=== PATIENT | female | born 1945 | race Caucasian/White ===

== ENCOUNTER 2016-08-20 08:46 | Outpatient (CLI) | payer MEDICARE, OTHER ==
[~2016-08-20] VITALS: Ht 185.4 cm; Wt 160.8 kg
[2016-08-20 08:55] VITALS: BP 156/90
[2016-08-20 09:53] LABS: BASOPHILS # (AUTO) 0.1 10^3/uL (0.0-0.1); BASOPHILS % (AUTO) 1 % (0-10); EOSINOPHILS # (AUTO) 0.1 10^3/uL (0.0-0.3); EOSINOPHILS % (AUTO) 1 % (0-10); LYMPHOCYTES # (AUTO) 0.9 X 10^3 (1.0-4.0); LYMPHOCYTES % (AUTO) 9 % (12-44); MEAN CORPUSCULAR HEMOGLOBIN 29 PG (25-34); MEAN CORPUSCULAR HGB CONC 33 G/DL (32-36); MEAN CORPUSCULAR VOLUME 88 FL (80-99); MEAN PLATELET VOLUME 11.7 FL (7.4-10.4); MONOCYTES # (AUTO) 0.6 X 10^3 (0.0-1.0); MONOCYTES % (AUTO) 6 % (0-12); NEUTROPHILS % (AUTO) 84 % (42-75); PLATELET COUNT 209 10^3/uL (130-400); RED BLOOD COUNT 5.21 10^6/uL (4.35-5.85); RED CELL DISTRIBUTION WIDTH 14.6 % (10.0-14.5); WHITE BLOOD COUNT 9.5 10^3/uL (4.3-11.0)
[2016-08-20] MEDS ORDERED: ATOR20TA66 PO (09:57)
[2016-08-20] MEDS ORDERED: DIGO250T PO (09:57)
[2016-08-20] MEDS ORDERED: WARF10TA PO (09:57)
[2016-08-20] MEDS ORDERED: CARV12.53 PO (09:57)
[2016-08-20] MEDS ORDERED: INSU100I10 SQ (09:57)
[2016-08-20] MEDS ORDERED: LISI1TAB8 PO (09:57)
[2016-08-20 10:14] LABS: CREATININE SERUM 1.08 MG/DL (0.60-1.30); POTASSIUM 3.7 MMOL/L (3.6-5.0)
[2016-08-20 10:22] LABS: DIGOXIN 1.08 NG/ML (0.80-2.00)
== END 2016-08-20 09:40 | disposition home or self-care (01) ==
LOC: EDSEX → PREOP 08:46
PROVIDERS: ATTEND Surgery Pediatric Surgery
DX: Z01.812 Encounter for preprocedural laboratory examination (principal); Z01.818 Encounter for other preprocedural examination; E66.01 Morbid (severe) obesity due to excess calories; Z11.2 Encounter for screening for other bacterial diseases; Z79.899 Other long term (current) drug therapy
CPT/HCPCS: 36415; 80048; 80162; 85025; 87081; 93005

== ENCOUNTER 2016-08-26 08:47 | Inpatient (IN) | payer MEDICARE, OTHER ==
[~2016-08-26] VITALS: Ht 185.4 cm; Wt 160.8 kg
[~2016-08-26 08:47] MED LIST: ATOR20TA66 PO; CARV12.53 PO; DIGO250T PO; INSU100I10 SQ; LISI1TAB8 PO; WARF10TA PO
--- OUTSIDE RECORDS SUMMARY | 2016-08-26 08:54 | XMS REPORT | Continuity of Care Document ---
Author Author [facility] Organization [facility] Address Unknown Phone Unavailable Care Team Providers Care Field Secretary Name Role Phone NO, LOCAL PHYSICIAN PCP Unavailable Insurance Providers Payer Name Policy Number Subscriber Name Relationship [employer] [id number] Erica Delgado Self / Same As Patient [employer] [id number] Erica Delgado Self / Same As Patient Advance Directives Directive Response Recorded Date/Time Advance Directives Yes 08/20/16 8:55am Health Care Power of Lumber Trimmer Y Chris 08/20/16 8:55am Organ Donor No 08/20/16 8:55am Resuscitation Status Full Code 08/20/16 8:55am Problems No problem information available. Medications Current Home Medications Medication Dose Units Route Directions Days/Qty Instructions Start Date Digoxin 250 Mcg 250 Mcg Oral Daily 08/20/16 Warfarin Sodium 10 Mg 5-10 Mg Oral Daily@1800 take 1/2 of 10mg pill on Tuesday take 1 (10mg) tab all the other days 08/20/16 Lisinopril/Hydrochlorothiazide 1 Each 1 Each Oral Twice A Day Carvedilol 12.5 Mg 12.5 Mg Oral Twice A Day 08/20/16 Atorvastatin Calcium 20 Mg 20 Mg Oral Bedtime 08/20/16 Insulin Glargine,Hum.rec.anlog 100 Unit/1 Ml 40 Unit Sub-Q Twice A Day 08/20/16 Social History Social History Problem Response Recorded Date/Time Alcohol Use Denies Use 08/20/2016 8:56am Recreational Drug Use No 08/20/2016 8:56am Recent Foreign Travel No 08/20/2016 8:51am Recent Infectious Disease Exposure No 08/20/2016 8:51am Smoking Status Former Smoker 08/20/2016 8:55am Recent Hopitalizations No 08/20/2016 8:56am Query Response Start Date Stop Date Smoking Status Former Smoker Hospital Discharge Instructions No hospital discharge instructions. Plan of Care Discharge Date 08/20/16 9:40am Prescriptions See Medication Section Functional Status No functional status results. Allergies, Adverse Reactions, Alerts Allergen Type Severity Reaction Status Last Updated Morphine Allergy Unknown makes me flushed feeling Active 08/20/16 Codeine Allergy Unknown sick, turns me red Active 08/20/16 Immunizations No immunization records. Vital Signs Acute Vital Signs Vital Response Date/Time Pulse Rate (adult) 77 bpm (60 - 90) 08/20/2016 8:55am O2 Sat by Pulse Oximetry 95 % (88 - 100) 08/20/2016 8:55am Blood Pressure 156/90 mm Hg 08/20/2016 8:55am Blood Pressure Mean 112 mm Hg 08/20/2016 8:55am Pain Numeric Pain Scale 2 08/20/2016 8:55am Height (Feet) 6 feet 08/20/2016 8:51am Height (Inches) 1.00 inches 08/20/2016 8:51am Height (Calculated Centimeters) 185.141048 cm 08/20/2016 8:51am Weight (Pounds) 354 pounds 08/20/2016 8:51am Weight (Ounces) 9.0 oz 08/20/2016 8:51am Weight (Calculated Grams) 673796.85 gm 08/20/2016 8:51am Weight (Calculated Kilograms) 160.339879 kilograms 08/20/2016 8:51am Calculated BMI 46.8 08/20/2016 8:51am Results Laboratory Results Test Name Result Units Flags Reference Collection Date/Time Result Date/ Time Comments White Blood Count 9.5 10^3/uL 4.3-11.0 08/20/2016 9:30am 08/20/2016 9: 53am Red Blood Count 5.21 10^6/uL 4.35-5.85 08/20/2016 9:30am 08/20/2016 9: 53am Hemoglobin 15.3 G/DL 11.5-16.0 08/20/2016 9:3008/20/2016 9:53am Hematocrit 46 % 35-52 08/20/2016 9:08/20/2016 9:53am Mean Corpuscular Volume 88 FL 80-99 08/20/2016 9:08/20/2016 9: 53am Mean Corpuscular Hemoglobin 29 PG 25-34 08/20/2016 9:08/20/2016 9: 53am Mean Corpuscular Hemoglobin Concent 33 G/DL 32-36 08/20/2016 9: 9:53am Red Cell Distribution Width 14.6 % H 10.0-14.5 08/20/2016 9:2016 9:53am Platelet Count 209 10^3/uL 130-400 08/20/2016 9:08/20/2016 9:53am Mean Platelet Volume 11.7 FL H 7.4-10.4 08/20/2016 9:3008/20/2016 9: 53am Neutrophils (%) (Auto) 84 % H 42-75 08/20/2016 9:08/20/2016 9:53am Lymphocytes (%) (Auto) 9 % L 12-44 08/20/2016 9:08/20/2016 9:53am Monocytes (%) (Auto) 6 % 0-12 08/20/2016 9:08/20/2016 9:53am Eosinophils (%) (Auto) 1 % 0-10 08/20/2016 9:08/20/2016 9:53am Basophils (%) (Auto) 1 % 0-10 08/20/2016 9:08/20/2016 9:53am Neutrophils # (Auto) 8.0 X 10^3 H 1.8-7.8 08/20/2016 9:08/20/2016 9: 53am Lymphocytes # (Auto) 0.9 X 10^3 L 1.0-4.0 08/20/2016 9:08/20/2016 9: 53am Monocytes # (Auto) 0.6 X 10^3 0.0-1.0 08/20/2016 9:3008/20/2016 9: 53am Eosinophils # (Auto) 0.1 10^3/uL 0.0-0.3 08/20/2016 9:30am 08/20/2016 9 :53am Basophils # (Auto) 0.1 10^3/uL 0.0-0.1 08/20/2016 9:30am 08/20/2016 9: 53am Procedures Procedure Status Date Provider(s) Tracing only of electrocardiogram Active 08/20/16 KATELIN ADAME DO Encounters Encounter Location Arrival/Admit Date Discharge/Depart Date Attending Provider Departed Clinic [facility] 08/20/16 8:46am 08/20/16 9: 40am ANAMIKA MASTERS MD
[2016-08-26 09:00] VITALS: BP 142/95
[2016-08-26] MEDS ORDERED: ceFAZolin 1 GM/NS 50 ML IVPB IV ONE ×2 (09:15)
[2016-08-26] MEDS ORDERED: FAMOTIDINE 20MG/2ML IV (PEPCID) IV ONE (09:45)
[2016-08-26] MEDS: LACTATED RINGERS 1,000 ML IV PRN ×3 (09:50→14:31)
--- NOTE | 2016-08-26 10:40 | Progress Note-Pre Operative ---
Pre-Operative Progress Note H&P Reviewed The H&P was reviewed, patient examined and no changes noted. Date H&P Reviewed: Aug 26, 2016 Time H&P Reviewed: 10:30 Pre-Operative Diagnosis: morbid obesity, diabetes, sleep apnea ANAMIKA MASTERS MD Aug 26, 2016 10:40 am
[2016-08-26] MEDS ORDERED: proPOfol 200 MG/20 ML (DIPRIVAN) VIAL IV ONE (10:54)
[2016-08-26] MEDS ORDERED: ROCURONIUM 50 MG/5 ML (ZEMURON) VIAL IV ONE (10:54)
[2016-08-26] MEDS ORDERED: SUCCINYLCHOLINE INJ 100 MG/5 ML SYR ONE (10:54)
[2016-08-26] MEDS ORDERED: LACTATED RINGERS 1,000 ML IV ONE ×3 (10:54→14:24)
[2016-08-26] MEDS ORDERED: SEVOFLURANE (ULTANE) 15 ML INHAL SOLN ONE ×7 (10:54→13:25)
[2016-08-26] MEDS ORDERED: LIDOCAINE PF 2% 10 ML (XYLOCAINE) AMP ONE (10:54)
[2016-08-26] MEDS ORDERED: fentaNYL INJECTION 100 MCG/2 ML AMP ONE ×3 (10:55→14:24)
[2016-08-26] MEDS ORDERED: MIDAZOLAM 2 MG/2 ML (VERSED) VIAL ONE (10:55)
[2016-08-26] MEDS ORDERED: BUP/EPI 0.5% 1:200,000 (SENSORCAINE) 30 ML VIAL ONE (10:57)
[2016-08-26] MEDS ORDERED: PROMETHAZINE INJ 25 MG/ML (PHENERGAN) AMP IV PRN (11:00)
[2016-08-26] MEDS ORDERED: ONDANSETRON 4 MG/2 ML (SDV) Z0FRAN IV PRN (11:00)
[2016-08-26] MEDS ORDERED: MEPERIDINE (DEMEROL) INJ 50 MG/ML IV PRN (11:00)
[2016-08-26] MEDS ORDERED: fentaNYL INJECTION 250 MCG/5 ML AMP IV PRN (11:00)
[2016-08-26] MEDS ORDERED: GLYCOPYRROLATE 0.2 MG/ML (ROBINUL) 2 ML VIAL ONE ×2 (12:12→13:18)
[2016-08-26] MEDS ORDERED: NITROGLYCERIN IV ONE (12:49)
[2016-08-26] MEDS ORDERED: hydrALAZINE (APESOLINE) 20 MG/ML VIAL ONE (12:49)
[2016-08-26] MEDS ORDERED: NEOSTIGMINE (BLOXIVERZ ) 1 MG/1ML 10 ML VIAL ONE (13:18)
[2016-08-26] MEDS ORDERED: BUP/EPI 0.5% 1:200,000 (SENSORCAINE) 30 ML VIAL INJ ONE (13:30)
[2016-08-26] MEDS ORDERED: diphenhydrAMINE 50 MG/ML INJ (BENADRYL) IVP PRN (13:45)
[2016-08-26] MEDS ORDERED: fentaNYL INJECTION 5,000 MCG in NS (IVPB) 0 ML IV SCH (13:45)
[2016-08-26] MEDS ORDERED: metroNIDAZOLE 500MG/100ML IVPB 100 ML IV SCH (13:45)
[2016-08-26] MEDS ORDERED: oxyCODONE 20 MG/1 ML ORAL CONC (RoxiCODONE) CHARGE PER 1 ML PO PRN (13:45)
[2016-08-26] MEDS ORDERED: RT-ALBUTEROL SULF 2.5 MG/3 ML PRE-MIX VIAL INH SCH (13:45)
--- NOTE | 2016-08-26 13:45 | Progress Note-Post Operative ---
Post-Operative Progess Note Hand Cooper Helper yissel bower BOTANY PROFESSOR Pre-Operative Diagnosis morbid obesity, diabetes, sleep apnea Post-Operative Diagnosis same Post-Op Procedure Note Date of Procedure: Aug 26, 2016 Name of Procedure: laparoscopic gastric sleeve resection Anesthesia Type GET Estimated blood loss (mL): minimal Specimen(s) collected stomach ANAMIKA MASTERS MD Aug 26, 2016 1:44 pm
[2016-08-26] MEDS ORDERED: ceFAZolin INJECTION 2,000 MG in NS (IVPB) 50 ML IV SCH (14:00)
[2016-08-26] MEDS ORDERED: PROMETHAZINE INJ 25 MG/ML (PHENERGAN) AMP ONE (14:03)
[2016-08-26] MEDS: PROMETHAZINE INJ 25 MG/ML (PHENERGAN) AMP IVP PRN ×2 (14:17→14:32)
[2016-08-26] MEDS: 1/2 NS W/KCL 20 MEQ/L 1,000 ML IV SCH ×3 (15:36→21:13)
[2016-08-26 17:00] VITALS: BP 186/84
[2016-08-26] MEDS: meTOprolol 5 MG/5 ML (LOPRESSOR) VIAL IVP SCH ×3 (17:13→23:31)
[2016-08-26] MEDS: metroNIDAZOLE 500MG/100ML IVPB 100 ML IV SCH ×2 (17:13→23:30)
[2016-08-26 17:53] VITALS: BP 186/84
[2016-08-26] MEDS ORDERED: fentaNYL PCA 300 MCG/30 ML VIAL IV PRN (18:15)
[2016-08-26] MEDS ORDERED: FLU TRIvalent (5 YOA+) 2016-17 (AFLURIA) 0.5 ML IM ONE (18:30)
[2016-08-26] MEDS: RT-ALBUTEROL SULF 2.5 MG/3 ML PRE-MIX VIAL INH SCH ×2 (18:31→22:18)
[2016-08-26] MEDS: ONDANSETRON 4 MG/2 ML (SDV) Z0FRAN IVP SCH ×2 (18:56→23:30)
[2016-08-26 19:54] VITALS: BP 227/113
[2016-08-26] MEDS: ceFAZolin INJECTION 2,000 MG in NS (IVPB) 50 ML IV SCH (19:56)
[2016-08-26] MEDS: ENOXAPARIN 40 MG/0.4 ML (LOVENOX) SYR SC SCH (21:08)
[2016-08-26] MEDS: PANTOPRAZOLE 40 MG/10 ML (PROTONIX) VIAL IV SCH (21:08)
[2016-08-26 21:14] VITALS: BP 184/88
[2016-08-26] MEDS ORDERED: METOCLOPRAMIDE INJ 10 MG/2 ML (REGLAN) ONE (22:35)
[2016-08-26] MEDS: METOCLOPRAMIDE INJ 10 MG/2 ML (REGLAN) IVP PRN (22:44)
[2016-08-27] VITALS: BP 170/88
[2016-08-27] MEDS: RT-ALBUTEROL SULF 2.5 MG/3 ML PRE-MIX VIAL INH SCH ×4 (02:43→14:00)
[2016-08-27] MEDS: 1/2 NS W/KCL 20 MEQ/L 1,000 ML IV SCH ×3 (03:37→11:55)
[2016-08-27] MEDS: meTOprolol 5 MG/5 ML (LOPRESSOR) VIAL IVP SCH ×3 (03:37→14:01)
[2016-08-27] MEDS: ceFAZolin INJECTION 2,000 MG in NS (IVPB) 50 ML IV SCH ×2 (03:57→14:01)
[2016-08-27 04:00] VITALS: BP 162/84
[2016-08-27 04:41] LABS: MEAN PLATELET VOLUME 10.7 FL (7.4-10.4); RED BLOOD COUNT 5.29 10^6/uL (4.35-5.85); RED CELL DISTRIBUTION WIDTH 14.4 % (10.0-14.5); WHITE BLOOD COUNT 13.8 10^3/uL (4.3-11.0)
[2016-08-27 05:00] LABS: ANION GAP 15 MMOL/L (5-14); BLOOD UREA NITROGEN 17 MG/DL (7-18); BUN/CREATININE RATIO 16; CALCIUM 8.8 MG/DL (8.5-10.1); CARBON DIOXIDE 20 MMOL/L (21-32); CHLORIDE 100 MMOL/L (98-107); CREATININE SERUM 1.08 MG/DL (0.60-1.30); GFR ESTIMATED > 60; GLUCOSE 176 MG/DL (70-105); POTASSIUM 3.8 MMOL/L (3.6-5.0); SODIUM 135 MMOL/L (135-145)
[2016-08-27] MEDS: ONDANSETRON 4 MG/2 ML (SDV) Z0FRAN IVP SCH ×2 (05:49→14:01)
[2016-08-27 06:07] LABS: OCCULT BLOOD NEGATIVE QC NEGATIVE (NEGATIVE); OCCULT BLOOD POSITIVE QC POSITIVE (POSITIVE); OCCULT BLOOD,GASTRIC FLUID POSITIVE (NEGATIVE)
[2016-08-27 08:00] VITALS: BP 180/84
[2016-08-27] MEDS ORDERED: METOCLOPRAMIDE INJ 10 MG/2 ML (REGLAN) ONE (08:34)
[2016-08-27] MEDS: PANTOPRAZOLE 40 MG/10 ML (PROTONIX) VIAL IV SCH (08:48)
[2016-08-27] MEDS: metroNIDAZOLE 500MG/100ML IVPB 100 ML IV SCH (08:49)
[2016-08-27] MEDS: ENOXAPARIN 40 MG/0.4 ML (LOVENOX) SYR SC SCH (08:50)
[2016-08-27] MEDS: METOCLOPRAMIDE INJ 10 MG/2 ML (REGLAN) IVP PRN (08:52)
[2016-08-27] MEDS ORDERED: ONDANSETRON 4 MG/2 ML (SDV) Z0FRAN IVP PRN ×2 (09:34→13:45)
--- NOTE | 2016-08-27 09:42 | Progress Note (SOAP) ---
Subjective Subjective/Events-last exam doing ok, pain controlled. having some nausea and one episode small amount emesis. ambulating well. Objective Exam Vital Signs Date Time Temp Pulse Resp B/P Pulse Ox O2 Delivery O2 Flow Rate FiO2 08/27/16 06:20 92 08/27/16 06:00 18 08/27/16 04:00 98.2 79 18 162/84 93 Room Air 08/27/16 02:44 98 4.00 08/27/16 01:31 70 08/27/16 00:00 98.4 80 18 170/88 98 Room Air 08/26/16 22:18 97 4.00 08/26/16 21:53 84 08/26/16 21:14 73 184/88 08/26/16 19:54 96.0 75 18 227/113 97 Room Air 08/26/16 18:32 98 4.00 08/26/16 17:53 96.5 60 16 186/84 99 Room Air 08/26/16 17:00 96.5 60 16 186/84 99 Room Air 08/26/16 12:00 98.0 I & O 08/27/16 07:00 Intake Total 3260 ml Output Total 4230 ml Balance -970 ml Capillary Refill : General Appearance: No Apparent Distress HEENT: PERRL/EOMI Neck: Full Range of Motion Respiratory: Chest Non Tender Lungs Clear Cardiovascular: Regular Rate, Rhythm Gastrointestinal: soft other (incision clean/dry) Extremity: Normal Capillary Refill Neurologic/Psychiatric: Alert Oriented x3 Skin: Normal Color Lymphatic: No Adenopathy Results Lab Laboratory Tests 08/26/16 14:11: Glucometer 109 08/26/16 16:06: Glucometer 142H 08/26/16 20:10: Glucometer 152H 08/27/16 00:33: Glucometer 190H 08/27/16 04:25: Anion Gap 15H, BUN/Creatinine Ratio 16, Blood Urea Nitrogen 17, Calcium Level 8.8, Carbon Dioxide Level 20L, Chloride Level 100, Creatinine 1.08, Estimat Glomerular Filtration Rate > 60, Glucose Level 176H, Hematocrit 46, Hemoglobin 15.6, Mean Corpuscular Hemoglobin 30, Mean Corpuscular Hemoglobin Concent 34, Mean Corpuscular Volume 88, Mean Platelet Volume 10.7H, Platelet Count 229, Potassium Level 3.8, Red Blood Count 5.29, Red Cell Distribution Width 14.4, Sodium Level 135, White Blood Count 13.8H 08/27/16 04:32: Glucometer 161H 08/27/16 05:50: Gastric Fluid Occult Blood POSITIVE 08/27/16 09:02: Glucometer 157H Assessment/Plan Assessment/Plan Assess & Plan/Chief Complaint s/p laparoscopic gastric sleeve resection. ambulate. start phase 1 clear liquid diet. home when criteria met. Diagnosis/Problems: Clinical Quality Measures DVT/VTE Risk/Contraindication: Risk Factor Score Per Nursin RFS Level Per Nursing on Admit: 4+=Very High ANAMIKA MASTERS MD Aug 27, 2016 09:42
[2016-08-27] MEDS ORDERED: PROMETHAZINE INJ 25 MG/ML (PHENERGAN) AMP IVP PRN (09:45)
[2016-08-27] MEDS ORDERED: PANT40TA3 PO (09:48)
[2016-08-27] MEDS ORDERED: ONDN4T PO (09:48)
[2016-08-27] MEDS ORDERED: OXYC-473 PO (09:48)
--- NOTE | 2016-08-27 09:52 | Discharge Inst-Surgical ---
D/C Lap Instructions-SONAM Follow Up Appt in 2 weeks Activity as tolerated No driving for 24 hours No driving while on pain medications Incentive Spirometry use every 2 hours while awake Phase one clear liquid diet 2 weeks. Symptoms to Report: Fever over 101 degree F, Nausea/Vomiting Infection Signs and Symptoms to report: Increased redness, Foul odor of wound, Increased drainage Bathing instructions: May shower Operative Area Clean/Dry; Keep incision clean/dry If any problems/questions: Contact your physician or go to Emergency Room ANAMIKA MASTERS MD Aug 27, 2016 09:51
--- NOTE | 2016-08-27 11:10 | OPERATIVE REPORT ---
PROCEDURE PHYSICIAN: ANAMIKA TORRES DATE OF PROCEDURE: ATTENDING PRIMARY CARE PHYSICIAN: Dr. Guido PREOPERATIVE DIAGNOSIS: 1. Morbid obesity. 2. Hypertension. 3. Diabetes. 4. Sleep apnea. POSTOPERATIVE DIAGNOSIS: 1. Morbid obesity. 2. Hypertension. 3. Diabetes. 4. Sleep apnea. PROCEDURE: Laparoscopic gastric sleeve resection. SURGEON: Dr. Torres. RAW PRODUCTS DIRECTOR: Raleigh Garcia APRN. ANESTHESIA: General endotracheal. ESTIMATED BLOOD LOSS: Minimal. FINDINGS: 1. Moderate hepatomegaly. 2. Gallbladder appeared normal. DISPOSITION: The patient tolerated the procedure well. BRIEF HISTORY: Mr. Saúl Leyva is a 71-year-old male with morbid obesity and in our surgical weight loss program for the gastric sleeve resection and meets the medical criteria for bariatric surgery. This gentleman reports that his lowest weight was in his early 20s, when he was approximately 180 pounds. He is 89 and states that he stayed around 240 to 250 pounds for many years. Approximately 14 years ago at around age 57 he developed a significant amount of fatigue. He was seen by several physicians and found to have atrial fibrillation. With atrial fibrillation he developed lower extremity edema and immobility. He states that since this diagnosis he has developed other medical problems including fatigue, strength loss and sedentary lifestyle which allowed for a significant amount weight again. He has tried diets including low carbohydrate low-fat diets with no success. He has tried exercise regimens including weight training at the gym, treadmill, walking with no success. He has not tried any medications in the past. His medical comorbidities related to his obesity include atrial fibrillation, hypertension, degenerative joint disease, hypercholesterolemia and obstructive sleep apnea. PROCEDURE: The patient was brought to the operating room and laid supine on the table. After adequate IV pain and sedative medications and general endotracheal intubation the abdomen was prepped and draped in standard surgical fashion. 0.5% Marcaine with epinephrine was then used to anesthetize the overlying skin in the left upper abdominal quadrant. A small transverse skin incision made using a 15 blade. An 0 silk suture was applied to the medial aspect of the incision for retraction. A Veress needle inserted with low opening pressures 0 mmHg and the abdomen was insufflated to 15 mmHg pressure. The Veress needle removed and a 5 mm Xcel trocar placed followed by a 5 mm, 45 degrees angle laparoscope, visualizing the peritoneal cavity. A four-quadrant abdominal exploration was performed. There was a mild to moderate hepatomegaly. The gallbladder appeared normal. Under direct visualization we then proceeded to place a mid abdominal, left of midline, 10 mm port after the skin and peritoneum were anesthetized using 0.5% Marcaine with epinephrine and a transverse incision made using a 15 blade. In a similar manner, a mid abdominal, right of midline 15 mm port was placed, followed by right upper abdominal quadrant 5 mm port. An area in the epigastric region was then anesthetized and a small transverse skin incision made using an 11 blade. A tract was then created through the abdominal layers using the trocar to a 5 mm port and a medium size Joy liver retractor was placed through this opening and the left lobe of the liver retracted anteriorly and superiorly. The patient was then placed in steep reverse Trendelenburg position. We then proceeded to approximately measure 6 cm from the pylorus and this was marked with a marking pen. The hepatocolic ligament next to the stomach was then opened using a Sonicision and the lesser sac opened. We then proceeded with inferior dissection until we were approximately 2 cm below our miles using the Sonicision. We then proceeded cephalad along the greater curvature taking down the short gastric vessels using the Sonicision. We then proceeded with dissection of the angle of His, as well as the posterior stomach behind it with visualization of good hemostasis. The GastriSail was then inserted by anesthesia, under direct visualization. This was lighted and acted as are bougie for our staple line. A KALA 45 mm black polyglycolic acid black load was then used to staple and transect the stomach approximately 2 cm below our marking. We then proceeded with two 60 mm black loads again following the bougie as our guide. We then follow with two 60 mm purple load staplers completing our gastric sleeve resection. Good hemostasis was observed. The staple line corners were then clipped with 5 mm clips. The pylorus was then occluded and saline infused. Approximately 60 milliliters of air were then infused with no leak identified. The saline was then suctioned out. Tisseel fibrin glue was then placed on the staple line. The omentum placed over the staple line. The liver retractor was then removed. The stomach was removed through the 15 mm port site. The 15 and 10 mm port site, fascia and peritoneum were then closed under direct visualization using a Terrnece-Ar device and 0 Vicryl suture. The abdomen was desufflated and the remaining ports removed. All skin incisions were closed using 4-0 Monocryl running subcuticular sutures. The wounds were then cleaned and covered Dermabond. The patient tolerated the procedure well. We will admit to the general surgical floor. We will start IV and oral pain medication, including a Fentanyl SUPERVISOR BOILER REPAIR as well as a DVT prophylaxis with calf SCDs, early ambulation with, as well as Lovenox injections. We will start a phase I clear liquid diet tomorrow, as well as oral pain medication. Once he is tolerating 60 milliliters of clear liquids every half-hour is ambulating well, and has adequate pain control with oral pain medication, we will discharge him home. Job ID: [id number] Dictated Date: 08/26/2016 14:05:37 Editor Managing Director Date: 08/27/2016 10:51:07 / richardson
--- NOTE | 2016-08-27 11:36 | Consultation-Hospitalist ---
HPI History of Present Illness: HPI/Chief Complaint CC: Medical management after gastric sleeve HPI: This is a 71-year-old white male that has undergone an uncomplicated gastric sleeve by Dr. Torres and I have been asked to manage the patient's medical problems while hospitalized. He does have a history of atrial fibrillation and he sees Dr. Ring cardiology in [place] and he does not have any history of heart disease or stent placements. At this current time we are managing the severe nausea which seems to be improving now that he can handle sips of water but I do review his medication and find the did need to be restarted to prevent atrial fibrillation with rapid ventricular response so will be focused on controlling the nausea to be able to tolerate oral meds to prevent that complication. Source: patient, family, RN/MD Exam Limitations: no limitations Date Seen 08/27/16 Attending Physician Davonte Torres MD PCP No,Local Physician Referring Physician Date of Admission Aug 26, 2016 at 08:47 Home Medications & Allergies Home Medications Reviewed patient Home Medication Reconciliation Form Allergies Coded Allergies: codeine (Verified Allergy, Unknown, sick, turns me red, 08/20/16) morphine (Verified Allergy, Unknown, makes me flushed feeling, 08/20/16) Past Hcizbyf-Tavnpr-[id number] Hx Patient Social History Marrital Status: Employed/Student: retired (floor covering for 30 years) Alcohol Use: Denies Use Recreational Drug Use: No Smoking Status: Never a Smoker Physical Abuse Screen: No Sexual Abuse: No Recent Foreign Travel: No Contact w/other who traveled: No Recent Hopitalizations: No Recent Infectious Disease Expo: No Seasonal Allergies Seasonal Allergies: Yes Respiratory Hx Respiratory Disorders: No Cardiovascular Hx Cardiovascular Disorders: Yes Cardiac Disorders: Atrial Fibrillation, High Cholesterol, Hypertension Neurological Hx Neurological Disorders: No Genitourinary Hx Genitourinary Disorders: No Gastrointestinal Hx Gastrointestinal Disorders: No Musculoskeletal Hx Musculoskeletal Disorders: No Musculoskeletal Disorders: Arthritis Endocrine Hx Endocrine Disorders: No HEENT HX ENT Disorders: No Cancer Hx Cancer: No Psychosocial Hx Psychiatric Problems: No Integumentary Skin/Integumentary Disorders: Pruritis Family Medical History Significant Family History: No Pertinent Family Hx Family Hx: Arthritis 19 FATHER Cardiovascular disease 19 FATHER FH: leukemia 19 MOTHER Hypertension 19 FATHER Review of Systems Constitutional: see HPI EENTM: no symptoms reported Respiratory: no symptoms reported Cardiovascular: no symptoms reported Gastrointestinal: abdominal pain (RUQ) nausea vomiting Genitourinary: no symptoms reported Musculoskeletal: no symptoms reported Skin: no symptoms reported Psychiatric/Neurological: No Symptoms Reported All Other Systems Reviewed Negative Unless Noted: Yes Physical Exam Physical Exam Vital Signs Vital Sign - Last 12Hours 08/26/16 08/26/16 09:00 18:32 Temp 98.0 Pulse 81 Resp 18 B/P 142/95 Pulse Ox 99 O2 Delivery Room Air O2 Flow Rate 4.00 Capillary Refill : General Appearance: No Apparent Distress WD/WN Chronically ill Obese Eyes: Bilateral Eye Normal Inspection, Bilateral Eye PERRL HEENT: PERRL/EOMI Normal ENT Inspection Pharynx Normal Neck: Full Range of Motion Normal Inspection Non Tender Supple Carotid Bruit Respiratory: Chest Non Tender Lungs Clear Normal Breath Sounds No Accessory Muscle Use No Respiratory Distress Cardiovascular: No Edema No Gallop No JVD No Murmur Normal Peripheral Pulses Irregularly Irregular Gastrointestinal: Normal Bowel Sounds No Organomegaly No Pulsatile Mass Non Tender Soft Back: Normal Inspection No CVA Tenderness No Vertebral Tenderness Extremity: Normal Capillary Refill Normal Inspection Normal Range of Motion Non Tender No Calf Tenderness No Pedal Edema Neurologic/Psychiatric: Alert Oriented x3 No Motor/Sensory Deficits Normal Mood/Affect Skin: Normal Color Warm/Dry Lymphatic: No Adenopathy Results Results/Procedures Lab Laboratory Tests 08/27/16 04:25 Assessment/Plan Admission Diagnosis Assessment: Uncomplicated gastric sleeve procedure Recurrent nausea postop Chronic atrial fibrillation on digoxin and Coreg and anticoagulation Hyperlipidemia Assessment and Plan Manage recurrent nausea so that oral digoxin rate control can be restarted Monitor closely for any occurrence of rapid ventricular response Thank you for this consult and I will follow with you Clinical Quality Measures DVT/VTE Risk/Contraindication: Risk Factor Score Per Nursin RFS Level Per Nursing on Admit: 4+=Very High NAHUM TOLBERT DO Aug 27, 2016 11:36
[2016-08-27 12:00] VITALS: BP 186/86
--- NOTE | 2016-08-27 12:51 | Anesthesia-General Post-Op ---
General Patient Condition Mental Status/LOC: Same as Preop Cardiovascular: Satisfactory Nausea/Vomiting: Absent Respiratory: Satisfactory Pain: Controlled Complications: Absent Post Op Complications Complications None Follow Up Care/Instructions Patient Instructions None needed. Anesthesia/Patient Condition Patient Condition Patient is doing well, no complaints, stable vital signs, no apparent adverse anesthesia problems. No complications reported per nursing. DARRIUS CORTEZ CRNA Aug 27, 2016 12:51
[2016-08-27 16:39] VITALS: BP 186/86
[2016-08-28] MEDS ORDERED: DIGOXIN 0.25 MG (LANOXIN) TAB PO SCH (09:00)
[2016-08-28] MEDS ORDERED: MILK OF MAGNESIA 400 MG/5 ML 30 ML UDC PO PRN (13:45)
== END 2016-08-27 16:39 | disposition home or self-care (01) | DRG 621 ==
LOC: 4TH 08:47 → EDSEX 08:47 → SURG 08:48 → 4TH 15:00
PROVIDERS: ADMIT Surgery Pediatric Surgery; ATTEND Surgery Pediatric Surgery
PROC: 0DB64Z3 Excision of Stomach, Percutaneous Endoscopic Approach, Vertical (ICD-10-PCS; principal; 2016-08-26 11:18)
DX: E66.01 Morbid (severe) obesity due to excess calories (principal); Z68.42 Body mass index [BMI] 45.0-49.9, adult; E11.9 Type 2 diabetes mellitus without complications; G47.33 Obstructive sleep apnea (adult) (pediatric); I10 Essential (primary) hypertension; I48.91 Unspecified atrial fibrillation; E78.00 Pure hypercholesterolemia, unspecified; M19.91 Primary osteoarthritis, unspecified site; R16.0 Hepatomegaly, not elsewhere classified; R11.2 Nausea with vomiting, unspecified
CPT/HCPCS: 36415; 80048; 82271; 82962; 85027; 94640; 94664; 94760